=== PATIENT | female | born 1990 ===

== ENCOUNTER 2021-06-13 02:44 | Outpatient (CLI) | payer OTHER ==
[2021-06-13] MEDS ORDERED: PRENATAL CAPLE1 EAC1 PO (04:37)
[2021-06-13] MEDS ORDERED: PEPCID AC20 MG PO (12:03)
== END 2021-06-13 13:27 | disposition home or self-care (01) ==
LOC: OBS/DEL 02:44
PROVIDERS: ATTEND Obstetrics & Gynecology
DX: O26.892 Other specified pregnancy related conditions, second trimester (principal); K29.70 Gastritis, unspecified, without bleeding; O26.842 Uterine size-date discrepancy, second trimester; O60.02 Preterm labor without delivery, second trimester; O30.042 Twin pregnancy, dichorionic/diamniotic, second trimester; Z3A.20 20 weeks gestation of pregnancy

== ENCOUNTER 2021-06-17 13:58 | Outpatient (CLI) | payer OTHER ==
[~2021-06-17 13:58] MED LIST: PEPCID AC20 MG PO; PRENATAL CAPLE1 EAC1 PO
== END 2021-06-17 15:48 | disposition home or self-care (01) ==
LOC: PRENATAL 13:58
PROVIDERS: ATTEND Obstetrics & Gynecology Maternal & Fetal Medicine
DX: O35.0XX2 Maternal care for (suspected) central nervous system malformation in fetus, fetus 2 (principal); O35.3XX2 Maternal care for (suspected) damage to fetus from viral disease in mother, fetus 2; O98.512 Other viral diseases complicating pregnancy, second trimester; O26.852 Spotting complicating pregnancy, second trimester; Z36.89 Encounter for other specified antenatal screening; Z3A.21 21 weeks gestation of pregnancy

== ENCOUNTER 2021-08-05 11:18 | Outpatient (CLI) | payer OTHER | END 2021-08-05 12:35 | disposition home or self-care (01) | LOC: PRENATAL 11:18 | PROVIDERS: ATTEND Obstetrics & Gynecology Maternal & Fetal Medicine | DX: O26.843 Uterine size-date discrepancy, third trimester (principal); O30.93 Multiple gestation, unspecified, third trimester; Z36.89 Encounter for other specified antenatal screening; Z3A.28 28 weeks gestation of pregnancy ==

== ENCOUNTER 2021-09-02 10:12 | Outpatient (CLI) | payer OTHER | END 2021-09-02 12:33 | disposition home or self-care (01) | LOC: PRENATAL 10:12 | PROVIDERS: ATTEND Obstetrics & Gynecology Maternal & Fetal Medicine | DX: O36.5990 Maternal care for other known or suspected poor fetal growth, unspecified trimester, not applicable or unspecified (principal); O35.0XX0 Maternal care for (suspected) central nervous system malformation in fetus, not applicable or unspecified; O30.90 Multiple gestation, unspecified, unspecified trimester ==

== ENCOUNTER 2021-09-08 09:04 | Outpatient (CLI) | payer OTHER | END 2021-09-08 10:30 | disposition home or self-care (01) | LOC: PRENATAL 09:04 | PROVIDERS: ATTEND Obstetrics & Gynecology Maternal & Fetal Medicine | DX: O35.0XX0 Maternal care for (suspected) central nervous system malformation in fetus, not applicable or unspecified (principal); O36.5990 Maternal care for other known or suspected poor fetal growth, unspecified trimester, not applicable or unspecified; O30.90 Multiple gestation, unspecified, unspecified trimester ==

== ENCOUNTER 2021-09-08 11:34 | Inpatient (IN) | payer OTHER ==
[~2021-09-08] VITALS: Ht 160 cm; Wt 1.4 kg
== END 2021-09-12 13:22 | disposition home or self-care (01) | DRG 788 ==
LOC: LDR 11:34 → OB/GYN 09-09 03:14
PROVIDERS: ADMIT Obstetrics & Gynecology; ATTEND Obstetrics & Gynecology
PROC: 4A1HXCZ Monitoring of Products of Conception, Cardiac Rate, External Approach (ICD-10-PCS; 2021-09-08)
PROC: BY4GZZZ Ultrasonography of Third Trimester, Multiple Gestation (ICD-10-PCS; 2021-09-08)
PROC: 10D00Z1 Extraction of Products of Conception, Low, Open Approach (ICD-10-PCS; principal; 2021-09-08 16:00)
DX: O60.14X2 Preterm labor third trimester with preterm delivery third trimester, fetus 2 (principal); O36.5931 Maternal care for other known or suspected poor fetal growth, third trimester, fetus 1; O36.8132 Decreased fetal movements, third trimester, fetus 2; O32.8XX1 Maternal care for other malpresentation of fetus, fetus 1; O30.043 Twin pregnancy, dichorionic/diamniotic, third trimester; Z3A.32 32 weeks gestation of pregnancy; Z37.2 Twins, both liveborn; Z20.822 Contact with and (suspected) exposure to COVID-19

== ENCOUNTER 2021-09-12 15:11 | Outpatient (CLI) | payer OTHER | END 2021-09-12 15:12 | disposition home or self-care (01) | LOC: LAB 15:11 | PROVIDERS: ATTEND Pediatrics | DX: Z20.822 Contact with and (suspected) exposure to COVID-19 (principal) ==

== ENCOUNTER 2021-09-15 15:14 | Outpatient (CLI) | payer OTHER | END 2021-09-15 15:19 | disposition home or self-care (01) | LOC: LAB 15:14 | PROVIDERS: ATTEND Pediatrics Neonatal-Perinatal Medicine | DX: R05.9 Cough, unspecified (principal); R06.02 Shortness of breath; Z03.818 Encounter for observation for suspected exposure to other biological agents ruled out ==

== ENCOUNTER 2021-09-16 08:00 | Outpatient (CLI) | payer OTHER | END 2021-09-16 08:30 | disposition home or self-care (01) | LOC: PPH VACUNA 08:00 | PROVIDERS: ATTEND Emergency Medicine Pediatric Emergency Medicine | DX: Z23 Encounter for immunization (principal) ==

== ENCOUNTER 2021-09-19 10:07 | Outpatient (CLI) | payer OTHER | END 2021-09-19 10:08 | disposition home or self-care (01) | LOC: LAB 10:07 | PROVIDERS: ATTEND Obstetrics & Gynecology | DX: O98.513 Other viral diseases complicating pregnancy, third trimester (principal) ==

== ENCOUNTER 2021-09-26 15:08 | Outpatient (CLI) | payer OTHER | END 2021-09-26 15:13 | disposition home or self-care (01) | LOC: LAB 15:08 | PROVIDERS: ATTEND Obstetrics & Gynecology | DX: O98.513 Other viral diseases complicating pregnancy, third trimester (principal) ==